=== PATIENT | female | born 1970 | race Caucasian/White ===

== ENCOUNTER → 2019-01-02 12:52 | Outpatient (CLI) | payer SELFPAY ==
[2019-01-02 14:24] LABS: Erythrocyte Sedimentation Rate 10 MM/HR (0-20)
[2019-01-02 14:46] LABS: Alanine Aminotransferase 29 IU/L (9-52); Albumin 4.6 g/dL (3.5-5.0); Albumin Globulin Ratio 1.5 (1.0-2.8); Alkaline Phosphatase 64 U/L (38-126); Aspartate Aminotransferase 28 IU/L (14-36); Bilirubin Total 0.8 mg/dL (0.2-1.3); Blood Urea Nitrogen 16 mg/dL (7-17); Calcium 9.7 mg/dL (8.4-10.2); Carbon Dioxide 25 mmol/L (22-32); Chloride 101 mmol/L (98-107); Cholesterol 188 mg/dL (140-199); Estimated Glomerular Filt Rate > 60.0 mL/min (>60); Globulin 3.1 g/dL (1.7-4.1); Glucose 82 mg/dL (70-100); HDL Cholesterol 48 mg/dL (40-60); HEMOLYSIS < 15 (0-50); LDL Cholesterol Calculated 116 mg/dL (<100); Potassium 4.4 mmol/L (3.4-5.1); Sodium 138 mmol/L (137-145); Total Protein 7.7 g/dL (6.3-8.2); Triglycerides 119 mg/dL (35-150)
[2019-01-02 14:50] LABS: High Sensitivity CRP - Cardiac 3.1 mg/L (1.0-3.0)
[2019-01-02 15:15] LABS: TSH w/ Reflex to FT4 0.76 uIU/mL (0.47-4.68)
[2019-01-04 14:29] LABS: HSV 2 IGG AB < 0.90 index (< 0.90); HSV1IGG < 0.90 index (< 0.90)
== END ==
PROVIDERS: PCP Family Medicine; Visit Provider Family Medicine
DX: Z01.419 Encounter for gynecological examination (general) (routine) without abnormal findings (principal); R21 Rash and other nonspecific skin eruption
CPT/HCPCS: 36415; 80053; 80061; 84443; 85651; 86140; 86695; 86696

== ENCOUNTER → 2019-02-14 12:41 | Outpatient (CLI) | payer SELFPAY ==
--- NOTE | 2019-02-14 12:47 | DI.MG.S_ITS ---
BILATERAL DIGITAL SCREENING MAMMOGRAM 3D/2D WITH CAD: 02/14/2019 CLINICAL: Routine screening. Comparison is made to exams dated: 06/16/2014 mammogram - [facility] and 06/13/2010 mammogram - [facility]. There are scattered fibroglandular elements in both breasts. Current study was also evaluated with a Computer Aided Detection (CAD) system. No significant masses, calcifications, or other findings are seen in either breast. There has been no significant interval change. IMPRESSION: NEGATIVE There is no mammographic evidence of malignancy. A 1 year screening mammogram is recommended. This exam was interpreted at Station ID: [id number]. NOTE: For mammograms, a report in lay terms will be sent to the patient. Approximately 15% of breast malignancies will not be visualized mammographically. In the management of a palpable breast mass, a negative mammogram must not discourage biopsy of a clinically suspicious lesion. Electronically Signed By: Jayna [email or web address]/manav:02/14/2019 20:43:26 letter sent: Normal Exam ACR BI-RADS Category 1: Negative [id number]
== END ==
PROVIDERS: PCP Family Medicine; Visit Provider Family Medicine
DX: Z12.31 Encounter for screening mammogram for malignant neoplasm of breast (principal)
CPT/HCPCS: 77063; 77067

== ENCOUNTER 2020-10-29 16:53 | Emergency (ER) | payer SELFPAY ==
[2020-10-29] VITALS (15 sets, daily range): BP systolic 149–206; BP diastolic 77–125; PULSE 53–68; RESP 14–24; O2SAT 96–99; BMI 31.3
--- NOTE | 2020-10-29 17:02 | DI.RAD.S_ITS ---
PROCEDURE: XR CHEST 1V INDICATIONS: chest pain TECHNIQUE: One view of the chest was acquired. COMPARISON: None. FINDINGS: Surgical changes and devices: None. Lungs and pleura: Minimal blunting of the costophrenic angles. Mediastinum: Mediastinal contours appear normal. Heart size is mildly prominent. Bones and chest wall: No suspicious bony lesions. Overlying soft tissues appear unremarkable. IMPRESSION: Minimal blunting possibly related to trace effusions versus scarring. Dictated by: Jessica Concepcion M.D. on 10/29/2020 at 17:20 Approved by: Jessica Concepcion M.D. on 10/29/2020 at 17:21
[2020-10-29 17:19] LABS: Add Manual Diff / Slide Review NO; Basophils Absolute Auto 100 /uL (0-100); Basophils Percent Auto 1.1 % (0-2); Eosinophils Absolute Auto 300 /uL (0-450); Eosinophils Percent Auto 2.7 % (2-4); Hematocrit 44.8 % (36-46); Hemoglobin 15.6 g/dL (12.0-16.0); Lymphocytes Absolute Auto 3000 /uL (1100-4500); Lymphocytes Percent Auto 31.3 % (25-40); Mean Corpuscular HGB Conc 34.8 % (30-36); Mean Corpuscular Hemoglobin 29.4 PG (26-34); Mean Corpuscular Volume 84.5 fL (80-100); Monocytes Absolute Auto 800 /uL (0-900); Monocytes Percent Auto 8.6 % (3-14); Neutrophils Absolute Auto 5300 /uL (1500-7000); Neutrophils Percent Auto 56.3 % (50-75); Platelet Count 270 X10^3/uL (150-400); Red Cell Distribution Width 12.7 % (11.6-14.8); White Blood Cell Count 9.4 X10^3/uL (4.5-11.0)
[2020-10-29 17:20] LABS: Prothrombin Time 11.7 SECONDS (10.1-12.7)
[2020-10-29 17:23] LABS: PTT Partial Thromboplastin Tim 32 SECONDS (26.4-36.2)
[2020-10-29 17:27] LABS: Alanine Aminotransferase 26 IU/L (<35); Albumin 4.4 g/dL (3.5-5.0); Albumin Globulin Ratio 1.3 (1.0-2.8); Alkaline Phosphatase 84 U/L (38-126); Aspartate Aminotransferase 29 IU/L (14-36); Bilirubin Total 0.7 mg/dL (0.2-1.3); Blood Urea Nitrogen 16 mg/dL (7-17); Calcium 9.5 mg/dL (8.4-10.2); Carbon Dioxide 27 mmol/L (22-32); Chloride 104 mmol/L (98-107); Creatine Kinase 51 U/L (30-135); Estimated Glomerular Filt Rate > 60.0 mL/min (>60); Globulin 3.3 g/dL (1.7-4.1); Glucose 104 mg/dL (70-100); HEMOLYSIS < 15 (0-50); Lipase 166 U/L (23-300); Potassium 3.6 mmol/L (3.4-5.1); Sodium 136 mmol/L (137-145); Total Protein 7.7 g/dL (6.3-8.2)
[2020-10-29 17:39] LABS: Troponin I < 0.012 ng/mL (0.01-0.034)
--- NOTE | 2020-10-29 18:10 | ED_ITS ---
HPI - Chest Pain General Chief Complaint: Chest Pain Stated Complaint: CHEST PAIN SOB Time Seen by Provider: 10/29/20 18:04 Source: patient Mode of arrival: Family Vehicle Limitations: no limitations History of Present Illness HPI narrative: 50-year-old woman with minimal medical issues presents with 2 weeks of substernal/epigastric pain that radiates through to her back. She notes that it initially started when she was about to eat a hamburger she noticed a tight squeezing that with severe last approximately 10 minutes and eventually resolved on its own she describes it as almost like heartburn but it does not radiate upper chest. It is present all of the time and nothing seems to alleviated or actually make it worse. She notes that over the last year she has gained approximately 30 lb and notes that her overall fitness is declined significantly. She is noticing exertional dyspnea by the time she is at the top of a steep hill without any associated chest pain. With these symptoms she has been reluctant to try Tums as she had read somewhere that Tums cause more problems and irritated the lining of the stomach. Additional problems include an itchy rash that she has experienced some Motrin 3 and 4 times a year for the last number of years. It is associated with hives it is symmetrical it starts as vesicles then moves to dry skin in scale is incredibly paretic and migrates to different parts of her body. She currently has the tail end of this phenomenon right now involving both ankles and is to the dry itchy skin stage. She denies fevers, cough, chills, exertional dyspnea, abdominal pain, change to bowel or bladder habits. She does note significant increased psychosocial stressors. 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 She is finding it difficult to continue to be involved with her children and her and feels significant stress over this. Related Data Home Medications Medication Instructions Recorded Confirmed CA PANTOTHENATE/FOLIC ACID/VIT 1 tab PO QDAY #0 11/18/12 04/18/18 (MULTIVITAMIN) Previous Rx's Medication Instructions Recorded nitrofurantoin 100 mg PO BID #10 cap 12/30/18 monohydrate/macrocrystals 100 mg capsule Allergies Allergy/AdvReac Type Severity Reaction Status Date / Time bee venom protein (honey bee) Allergy Severe Anaphylaxis Verified 10/29/20 18:35 Review of Systems Review of Systems ROS Unobtainable: All systems reviewed & are unremarkable except as noted in HPI and below Patient History Medical History Chicken pox Guillain-Richmond syndrome (~1980) Shingles (~2000) Surgical History Anesthesia Status post hysterectomy (2008) Family History Brother Age: 46 Alcoholic Father No problems noted. Grandfather Lung cancer Grandmother Heart failure Mother No problems noted. Social History Smoking Status: Never smoker Smoking Status: Never smoker alcohol intake frequency: 0-2 drinks per day Substance Use Type: does not use Exam Narrative Exam Narrative: General: Healthy appearing, in no acute distress. Able to give a complete and coherent history. Well-nourished well-developed HEENT: Moist mucous membranes, normal sclera with reactive pupils, Neck: No JVD, supple Respiratory: Lungs are clear to auscultation, no wheezing no rales no rhonchi. Full and symmetrical air movement Cardiac: Regular rate and rhythm no murmurs no bruits Abdomen: Soft, mild upper epigastric tenderness without rebound or guarding, good bowel tones, no flank pain Skin: Warm and dry, dry scaling skin to the ankles without erythema Neurologic: Grossly neurologically intact with no obvious asymmetries or abnormalities Extremities: No trauma, well perfused Psych: Cooperative, appropriate insight and affect Initial Vital Signs Initial Vital Signs: Vital Signs Pulse Rate 68 10/29/20 17:03 Respiratory Rate 18 10/29/20 17:03 Blood Pressure 201/93 H 10/29/20 17:03 Pulse Oximetry 98 10/29/20 17:03 Course Orders Ordered: ED Orders 10/29/20 17:02 XR chest 1V Stat EKG-12 Lead Stat 10/29/20 17:07 Complete Blood Count AUTO DIFF Stat Comprehensive Metabolic Panel Stat Lipase Stat Lipase Stat Partial Thromboplastin Time Stat Prothrombin Time INR Stat Troponin & CK Cardiac Panel Stat 10/29/20 17:47 Urine Microscopic Stat 10/29/20 18:26 US abdomen limited Stat 10/29/20 18:39 COVID19 Stat Discontinued Medications Al Hydrox/Mg Hydrox/Simethicone 20 ml/ Lidocaine HCl 15 ml 0 ml PO NOW ONE Stop: 10/29/20 18:27 Last Admin: 10/29/20 18:31 Dose: 35 ml Documented by: JORGE Pantoprazole Sodium (Pantoprazole 40 Mg Vial) 40 mg IV NOW ONE Stop: 10/29/20 18:29 Last Admin: 10/29/20 18:31 Dose: 40 mg Documented by: JORGE Vital Signs Vital signs: Vital Signs - 8 hr 10/29/20 17:03 10/29/20 17:11 10/29/20 17:30 Pulse Rate 68 66 58 L Respiratory Rate 18 24 18 Blood Pressure 201/93 H Pulse Oximetry 98 97 97 10/29/20 17:48 10/29/20 17:59 10/29/20 18:00 Pulse Rate 57 L 62 65 Respiratory Rate 18 22 21 Blood Pressure 164/84 H Pulse Oximetry 98 98 99 10/29/20 18:01 10/29/20 18:16 10/29/20 18:24 Pulse Rate 65 66 56 L Respiratory Rate 22 16 15 Blood Pressure 149/77 H 206/125 H 191/85 H Pulse Oximetry 98 97 99 10/29/20 18:30 10/29/20 18:46 10/29/20 19:00 Pulse Rate 58 L 56 L 59 L Respiratory Rate 21 19 19 Blood Pressure 175/79 H 182/88 H Pulse Oximetry 98 98 96 10/29/20 19:01 10/29/20 19:15 10/29/20 19:30 Pulse Rate 53 L 56 L 56 L Respiratory Rate 14 18 18 Blood Pressure 150/86 H 153/83 H Pulse Oximetry 99 98 98 MDM - Chest Pain Medical Records Data Attestation: I reviewed the patient's medical records. Lab Data Attestation: I reviewed the patient's lab results. Result diagrams: 10/29/20 17:07 10/29/20 17:07 Labs: Lab Results 10/29/20 10/29/20 10/29/20 Range/Units 17:07 17:07 17:07 WBC 9.4 (4.5-11.0) X10^3/uL RBC 5.30 H (4.0-5.2) X10^6/uL Hgb 15.6 (12.0-16.0) g/dL Hct 44.8 (36-46) % MCV 84.5 (80-100) fL MCH 29.4 (26-34) PG MCHC 34.8 (30-36) % RDW 12.7 (11.6-14.8) % Plt Count 270 (150-400) X10^3/uL Neut % (Auto) 56.3 (50-75) % Lymph % (Auto) 31.3 (25-40) % [place] % (Auto) 8.6 (3-14) % Eos % (Auto) 2.7 (2-4) % Baso % (Auto) 1.1 (0-2) % Neut # (Auto) 5300 (2650-7398) /uL Lymph # (Auto) 3000 (7834-3373) /uL [place] # (Auto) 800 (0-900) /uL Eos # (Auto) 300 (0-450) /uL Baso # (Auto) 100 (0-100) /uL PT 11.7 (10.1-12.7) SECONDS INR 1.0 (0.9-1.3) APTT 32 (26.4-36.2) SECONDS Sodium 136 L (137-145) mmol/L Potassium 3.6 (3.4-5.1) mmol/L Chloride 104 (98-107) mmol/L Carbon Dioxide 27 (22-32) mmol/L BUN 16 (7-17) mg/dL Creatinine 0.80 (0.52-1.04) mg/dL Estimated GFR > 60.0 (>60) mL/min BUN/Creatinine Ratio 20.0 (6-22) Glucose 104 H (70-100) mg/dL Calcium 9.5 (8.4-10.2) mg/dL Total Bilirubin 0.7 (0.2-1.3) mg/dL AST 29 (14-36) IU/L ALT 26 (<35) IU/L Alkaline Phosphatase 84 (38-126) U/L Total Creatine Kinase 51 (30-135) U/L CK-MB (CK-2) TNP CK-MB (CK-2) Rel Index TNP Troponin I < 0.012 (0.01-0.034) ng/mL Total Protein 7.7 (6.3-8.2) g/dL Albumin 4.4 (3.5-5.0) g/dL Globulin 3.3 (1.7-4.1) g/dL Albumin/Globulin Ratio 1.3 (1.0-2.8) Lipase 166 (23-300) U/L Urine RBC (0-5/HPF) Urine WBC (0-5/HPF) Ur Squamous Epith Cells (0-5/HPF) Amorphous Sediment Urine Bacteria (None) Urine Mucus (Negative) Ur Culture Indicated? SARS-CoV-2 (PCR) (Negative) 10/29/20 10/29/20 10/29/20 Range/Units 17:07 17:47 18:39 WBC (4.5-11.0) X10^3/uL RBC (4.0-5.2) X10^6/uL Hgb (12.0-16.0) g/dL Hct (36-46) % MCV (80-100) fL MCH (26-34) PG MCHC (30-36) % RDW (11.6-14.8) % Plt Count (150-400) X10^3/uL Neut % (Auto) (50-75) % Lymph % (Auto) (25-40) % [place] % (Auto) (3-14) % Eos % (Auto) (2-4) % Baso % (Auto) (0-2) % Neut # (Auto) (3457-8597) /uL Lymph # (Auto) (7260-3861) /uL [place] # (Auto) (0-900) /uL Eos # (Auto) (0-450) /uL Baso # (Auto) (0-100) /uL PT (10.1-12.7) SECONDS INR (0.9-1.3) APTT (26.4-36.2) SECONDS Sodium (137-145) mmol/L Potassium (3.4-5.1) mmol/L Chloride (98-107) mmol/L Carbon Dioxide (22-32) mmol/L BUN (7-17) mg/dL Creatinine (0.52-1.04) mg/dL Estimated GFR (>60) mL/min BUN/Creatinine Ratio (6-22) Glucose (70-100) mg/dL Calcium (8.4-10.2) mg/dL Total Bilirubin (0.2-1.3) mg/dL AST (14-36) IU/L ALT (<35) IU/L Alkaline Phosphatase (38-126) U/L Total Creatine Kinase (30-135) U/L CK-MB (CK-2) CK-MB (CK-2) Rel Index Troponin I (0.01-0.034) ng/mL Total Protein (6.3-8.2) g/dL Albumin (3.5-5.0) g/dL Globulin (1.7-4.1) g/dL Albumin/Globulin Ratio (1.0-2.8) Lipase 164 (23-300) U/L Urine RBC 0-1/hpf (0-5/HPF) Urine WBC 0-1/hpf (0-5/HPF) Ur Squamous Epith Cells 5-10 /hpf H (0-5/HPF) Amorphous Sediment 1+ Urine Bacteria Few (2-10) H (None) Urine Mucus 1+ H (Negative) Ur Culture Indicated? Cult not indicated SARS-CoV-2 (PCR) Negative (Negative) Urine Dip Bedside Urine Glucose Negative Bedside Urine Bilirubin - Negative Bedside Urine Ketone - Negative Urine Specific [place] 1.025 Bedside Urine Occult Blood + Bedside Urine pH 5.0 Bedside Urine Protein - Negative Bedside Urine Urobilinogen - Negative Bedside Urine Nitrite - Negative Bedside Urine Leukocytes - Negative Esterase Imaging Data Chest x-ray: Radiologist's Impression: FINDINGS: Surgical changes and devices: None. Lungs and pleura: Minimal blunting of the costophrenic angles. Mediastinum: Mediastinal contours appear normal. Heart size is mildly prominent. Bones and chest wall: No suspicious bony lesions. Overlying soft tissues appear unremarkable. IMPRESSION: Minimal blunting possibly related to trace effusions versus scarring. Dictated by: Jessica Concepcion M.D. on 10/29/2020 at 17:20 US - abdomen: Radiologist's Impression: from tech: Mild fatty liver with no evidence of gallstones or cholecystitis MDM Narrative Medical decision making narrative: 50-year-old woman presents with 2 weeks of epigastric/chest pain radiating through to her back. GI cocktail completely resolved symptoms. Remainder of workup does not suggest heart attack or acute coronary syndrome, pulmonary disease, pericarditis, pneumonia, gallstones or cholecystitis, pancreatitis or other significant abnormalities. Will recommend 2 weeks of omeprazole and we had a long discussion regarding work stressors, setting boundaries and making sure she makes time for herself and her family before work. Questions are answered and she is safe for home discharge Discharge Plan Departure Patient Disposition: Home Clinical Impression: Psychosocial stressors Gastritis Qualifiers: Gastritis type: unspecified gastritis Chronicity: acute Gastritis bleeding: without bleeding Qualified Code(s): K29.00 - Acute gastritis without bleeding Instructions: DI for Epigastric Pain Activity Restrictions/Additional Instructions: Thank you for coming in today Your pain completely resolved with Maalox and viscous lidocaine to numb the esophagus stomach. This definitely suggest irritation to the lining of your stomach as the source of your pain. I am going to suggest that you complete a 14 day course of omeprazole. There is no evidence of heart attack, pneumonia, gallbladder disease or pancreatitis. If your pain returns after stopping the omeprazole, please follow-up with Dr. Kimbrough. She may suggest Gastroenterology referral an upper endoscopy to confirm the diagnosis. I encourage you to continue some of the healthy behaviors her trying to get back to including walking, more balanced eating and most importantly a better balance between life and work. I wish you the best Prescriptions: No Action CA PANTOTHENATE/FOLIC ACID/VIT (MULTIVITAMIN) 1 tab PO QDAY Qty: 0 RF: 0 nitrofurantoin monohyd/m-cryst 100 mg capsule 100 mg PO BID Qty: 10 RF: 0 Referrals: Erin Kimbrough DO [Primary Care Provider] -
[2020-10-29 18:20] LABS: Amorphous Sediment Urine 1+; Bacteria Urine Few (2-10); Culture Indicated Urine Cult Not Indicated; Mucus Urine 1+ (Negative); RBC Urine 0-1/HPF (0-5/HPF); Squamous Epithelial Cell Urine 5-10 /HPF (0-5/HPF); WBC Urine 0-1/HPF (0-5/HPF)
--- NOTE | 2020-10-29 18:26 | DI.US.S_ITS ---
PROCEDURE: US ABDOMEN LIMITED INDICATIONS: EPIGASTRIC PAIN TECHNIQUE: Real-time scanning was performed of the abdominal and retroperitoneal organs, with image documentation. COMPARISON: None. FINDINGS: Liver: Liver is normal in size and homogeneous in echotexture. Gallbladder: Gallbladder is unremarkable. Wall thickness is within normal limits measuring 2.4 cm. No stones are identified. Biliary ducts: Intrahepatic bile ducts are non-dilated. Extrahepatic bile duct caliber measures 4 mm. Normal is 6-7 mm or less in diameter, or 10 mm or less post-cholecystectomy. Pancreas: Visualized portions of the pancreas are sonographically normal. IMPRESSION: Unremarkable exam. Dictated by: Jessica Concepcion M.D. on 10/29/2020 at 19:52 Approved by: Jessica Concepcion M.D. on 10/29/2020 at 19:53
[2020-10-29] MEDS: MAG HYDROX/ALUMINUM/SIMETH SUS 20 ML, LIDOCAINE VISCOUS 2% 15 ML PO (18:31)
[2020-10-29] MEDS: PANTOPRAZOLE 40 MG VIAL IV (18:31)
[2020-10-29 18:46] LABS: Lipase 164 U/L (23-300)
[2020-10-29 19:00] LABS: COVID19 -Nasal RAPID Negative (Negative)
== END 2020-10-29 20:20 | disposition home or self-care (01) ==
PROVIDERS: Emergency Medicine; Emergency Provider Emergency Medicine; PCP Family Medicine
DX: K29.00 Acute gastritis without bleeding (principal); Z65.8 Other specified problems related to psychosocial circumstances; R07.9 Chest pain, unspecified; R21 Rash and other nonspecific skin eruption; Z20.822 Contact with and (suspected) exposure to COVID-19
CPT/HCPCS: 36415; 71045; 76705; 80053; 81003; 81015; 82550; 83690; 84484; 85025; 85610; 85730; 87635; 93005; 96374; 99284; C9803; C9113